=== PATIENT | male | born 1995 | race Caucasian/White ===

== ENCOUNTER 2019-02-02 03:33 | Emergency (ER) | payer BC ==
[~2019-02-02] VITALS: Ht 177.8 cm; Wt 77.1 kg
[~2019-02-02 03:33] MED LIST: NORCO 5-325 TA1 EACH PO
[2019-02-02] MEDS ORDERED: LISINOPRIL10 MG (03:48)
[2019-02-02] MEDS ORDERED: PROPRANOLOL 1010 MG (03:54)
[2019-02-02] MEDS ORDERED: NORCO 7.5-3251 EACH PO (04:25)
[2019-02-02] MEDS ORDERED: ANUSOL-HC25 MG RECTAL (04:25)
[2019-02-02 04:40] VITALS: BP 136/88
== END 2019-02-02 04:41 | disposition home or self-care (01) ==
LOC: M.ERS 03:33
DX: K64.5 Perianal venous thrombosis (principal); I10 Essential (primary) hypertension; J45.909 Unspecified asthma, uncomplicated; G43.909 Migraine, unspecified, not intractable, without status migrainosus; F32.9 Major depressive disorder, single episode, unspecified; F17.210 Nicotine dependence, cigarettes, uncomplicated

== ENCOUNTER 2021-06-21 12:11 | Emergency (ER) | payer OTHER ==
[~2021-06-21] VITALS: Ht 177.8 cm; Wt 81.7 kg
[~2021-06-21 12:11] MED LIST changes: +ANUSOL-HC25 MG RECTAL; +LISINOPRIL10 MG; +NORCO 7.5-3251 EACH PO; +PROPRANOLOL 1010 MG
[2021-06-21 12:29] VITALS: BP 168/105
--- NOTE | 2021-06-22 14:32 | EKG ---
[place] [address] ELECTROCARDIOGRAM REPORT Name: CAROLINA HARDY Room: 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
== END 2021-06-21 14:10 | disposition left against medical advice (07) ==
LOC: M.ERS 12:11
DX: T65.91XA Toxic effect of unspecified substance, accidental (unintentional), initial encounter (principal); Z53.21 Procedure and treatment not carried out due to patient leaving prior to being seen by health care provider

== ENCOUNTER 2021-10-06 14:15 | Emergency (ER) | payer OTHER ==
[~2021-10-06] VITALS: Ht 177.8 cm; Wt 77.1 kg
[2021-10-06 14:40] LABS: ABSOLUTE EOSINOPHILS 0.2 thou/uL (0.0-0.7); EOSINOPHILS 1.9 %; HEMOGLOBIN 12.6 gm/dL (14.0-18.0)
[2021-10-06 14:42] LABS: URINE BILIRUBIN NEGATIVE (Negative); URINE BLOOD NEGATIVE (Negative); URINE CLARITY CLEAR; URINE COLOR YELLOW; URINE GLUCOSE-RANDOM NEGATIVE (Negative); URINE KETONES NEGATIVE (Negative); URINE LEUKOCYTES-REFLEX NEGATIVE (Negative); URINE NITRITE-REFLEX NEGATIVE (Negative); URINE PROTEIN NEGATIVE (Negative); URINE SPECIFIC GRAVITY 1.025 (1.005-1.030)
[2021-10-06 14:42] LABS: ABSOLUTE BASOPHILS 0.1 thou/uL (0.0-0.2); ABSOLUTE LYMPHOCYTES 2.2 thou/uL (0.8-5.3); ABSOLUTE MONOCYTES 0.5 thou/uL (0.0-1.2); ABSOLUTE NEUTROPHILS 5.6 thou/uL (1.6-8.1); BASOPHILS 0.7 %; HEMATOCRIT 36.4 % (42.0-52.0); LYMPHOCYTES 25.5 %; MCH 28.9 pg (26.0-34.0); MCHC 34.6 g/dL (28.0-37.0); MCV 83.5 fL (80.0-100.0); MONOCYTES 6.4 %; MPV 7.4 fl. (7.2-11.1); NUCLEATED RBCS 0 /100WBC; PLATELET COUNT* 297 thou/uL (150-400); POLYS 65.5 %; RBC 4.36 mil/uL (4.50-6.00); RDW-CV 15.1 % (10.5-14.5); WBC 8.5 thou/uL (4.0-11.0)
[2021-10-06 14:48] LABS: CALCIUM 7.9 mg/dL (8.5-10.1); POTASSIUM 3.7 mmol/L (3.5-5.1)
[2021-10-06 14:51] LABS: AMP/METHAMP POSITIVE (Negative); BARBITURATES Negative (Negative); BENZODIAZEPINES POSITIVE (Negative); COCAINE Negative (Negative); METHADONE Negative (Negative); OPIATES Negative (Negative); PCP Negative (Negative); THC POSITIVE (Negative)
[2021-10-06 14:52] LABS: ALBUMIN 3.2 g/dL (3.4-5.0); SALICYLATE < 2.8 mg/dL (2.8-20.0); TOTAL BILIRUBIN 0.1 mg/dL (<0.1-1.0); TOTAL PROTEIN 6.3 g/dL (6.4-8.2)
[2021-10-06 14:53] LABS: ACETAMINOPHEN < 2 ug/mL (10-30); ALCOHOL < 10 mg/dL (<10)
[2021-10-06 15:34] VITALS: BP 127/69
--- NOTE | 2021-10-07 11:16 | EKG ---
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1995 Requested By: Jadon Escamilla Order Number: [id number] MD: Paramjit Lee Measurements Intervals [place] Rate: 97 P: 51 OK: 171 QRS: 38 QRSD: 89 T: 28 QT: 357 QTc: 454 Interpretive Statements Sinus rhythm Left ventricular hypertrophy Compared to ECG 06/21/2021 12:38:59 Sinus arrhythmia no longer present Electronically Signed On 10-07-2021 11:15:52 DOCUMENTATION SPEC by Paramjit Lee [email or web address] <ELECTRONICALLY SIGNED> By: Paramjit Lee MD, [facility] 10/07/21 1115 1425 1425 Paramjit Lee MD, [facility] /EPI
== END 2021-10-06 15:35 | disposition home or self-care (01) ==
LOC: M.ERS 14:15
PROVIDERS: Family Medicine
DX: T40.2X1A Poisoning by other opioids, accidental (unintentional), initial encounter (principal); R40.20 Unspecified coma; F19.10 Other psychoactive substance abuse, uncomplicated; R11.10 Vomiting, unspecified; F32.9 Major depressive disorder, single episode, unspecified; I10 Essential (primary) hypertension; J45.909 Unspecified asthma, uncomplicated; G43.909 Migraine, unspecified, not intractable, without status migrainosus; F17.210 Nicotine dependence, cigarettes, uncomplicated; Z86.14 Personal history of Methicillin resistant Staphylococcus aureus infection; Y92.89 Other specified places as the place of occurrence of the external cause